=== PATIENT | female | born 1985 | race American Indian/Alaskan Native ===

== ENCOUNTER 2017-02-04 22:01 | Emergency (ER) | payer OTHER ==
[2017-02-04 22:14] VITALS: BP 133/71
[2017-02-04] MEDS ORDERED: PROVENTIL IH ONE (23:05)
--- NOTE | 2017-02-04 23:34 | Emergency Department Report ---
HPI - General Chief Complaint: Adult Asthma Time Seen by Provider: 02/04/17 23:18 - HPI HPI: This is a 31-year-old female who presents to the emergency department with complaint of a one to 2 day history of some shortness of breath and wheezing that she believes is an asthma exacerbation. She has asthma but is out of her albuterol inhaler or the medications to use her nebulizer. She denies any cough, fever, chest pain, back pain, nausea, vomiting or diaphoresis. She has not taken anything for her symptoms prior to Presentation. She follows up at a asthma and/or allergy clinic but says that she is moving and is going to find a new doctor. She denies any tobacco or illicit drug use or abuse. No recent travel or sick contacts at home. ED Past Medical Hx - Past Medical History Hx Asthma: Yes - Surgical History Past Surgical History?: No - Social History Smoking Status: Never Smoker Substance Use Type: Alcohol - Medications Home Medications: Home Medications Medication Instructions Recorded Confirmed Last Taken Type ALBUTEROL Inhaler [ProAir HFA 2 puff IH QID PRN #1 inhalation 02/05/17 Unknown Rx Inhaler] ALBUTEROL NEB's [Proventil] 2.5 mg IH TID PRN #1 box 02/05/17 Unknown Rx predniSONE [Deltasone] 20 mg PO BID #10 tablet 02/05/17 Unknown Rx ED Review of Systems ROS: Stated complaint: ASTHMA, SHORTNESS OF BREATH Other details as noted in HPI Comment: All other systems reviewed and negative Constitutional: denies: chills, fever Eyes: denies: eye pain, eye discharge, vision change ENT: denies: ear pain, throat pain Respiratory: shortness of breath, wheezing Cardiovascular: denies: palpitations, edema Gastrointestinal: denies: abdominal pain, nausea, diarrhea Genitourinary: denies: urgency, dysuria, discharge Musculoskeletal: denies: back pain, joint swelling, arthralgia Skin: denies: rash, lesions Neurological: denies: headache, weakness, paresthesias Physical Exam - Physical Exam Vital Signs: Vital Signs 02/04/17 02/04/17 02/04/17 22:06 22:11 23:11 Temperature 98.5 F 99.7 F H Pulse Rate 80 78 Pulse Rate [ Anterior Bilateral Throughout] Respiratory 18 18 22 Rate Respiratory Rate [Anterior Bilateral Throughout] Blood Pressure 133/71 133/71 O2 Sat by Pulse 100 100 99 Oximetry 02/04/17 23:12 Temperature Pulse Rate Pulse Rate [ 74 Anterior Bilateral Throughout] Respiratory Rate Respiratory 22 Rate [Anterior Bilateral Throughout] Blood Pressure O2 Sat by Pulse Oximetry Physical Exam: GENERAL: The patient is well-developed well-nourished. HENT: Normocephalic. Atraumatic. Patient has moist mucous membranes. EYES: Extraocular motions are intact. Pupils equal reactive to light bilaterally. NECK: Supple. Trachea is midline. CHEST/LUNGS: There is some mild wheezing throughout the chest. No tachypnea or accessory muscle use. A dry cough heard occasionally during examination. There is no respiratory distress noted. HEART/CARDIOVASCULAR: Regular. There is no tachycardia. There is no murmur. ABDOMEN: Abdomen is soft, nontender. Patient has normal bowel sounds. There is no abdominal distention. SKIN: Skin is warm and dry. NEURO: The patient is awake, alert, and oriented. The patient is cooperative. The patient has no focal neurologic deficits. The patient has normal speech. MUSCULOSKELETAL: There is no tenderness or deformity. There is no limitation range of motion. There is no evidence of acute injury. ED Course Vital Signs 02/04/17 02/04/17 02/04/17 22:06 22:11 23:11 Temperature 98.5 F 99.7 F H Pulse Rate 80 78 Pulse Rate [ Anterior Bilateral Throughout] Respiratory 18 18 22 Rate Respiratory Rate [Anterior Bilateral Throughout] Blood Pressure 133/71 133/71 O2 Sat by Pulse 100 100 99 Oximetry 02/04/17 23:12 Temperature Pulse Rate Pulse Rate [ 74 Anterior Bilateral Throughout] Respiratory Rate Respiratory 22 Rate [Anterior Bilateral Throughout] Blood Pressure O2 Sat by Pulse Oximetry ED Medical Decision Making - Radiology Data Radiology results: image reviewed interpreted by me: Chest x-ray does not show any acute process. There are no pleural effusions, obvious pneumonia and there is no pneumothorax. - Medical Decision Making 31-year-old female with a history of asthma presents with some wheezing and/or bronchospasm. She was given albuterol treatment and eventually prednisone. After the breathing treatment her wheezing has greatly improved and the patient says she is feeling better. Vital signs stable including being afebrile and no hypoxia. Chest x-ray does not show any pneumonia, pleural effusions or pneumothorax. She appears safe for discharge home at this time. She will go home with a refill of her albuterol inhaler, nebulized treatments and a course of steroids. She will return to the ER with any worsening or symptoms or any acute distress. - Differential Diagnosis asthma, bronchitis, pneumonia Critical Care Time: No Critical care attestation.: If time is entered above; I have spent that time in minutes in the direct care of this critically ill patient, excluding procedure time. ED Disposition Clinical Impression: Bronchospasm Asthma exacerbation Qualifiers: Asthma severity: unspecified severity Asthma persistence: unspecified Qualified Code(s): J45.901 - Unspecified asthma with (acute) exacerbation Disposition: TO HOME OR SELFCARE Is pt being admited?: No Condition: Stable Instructions: Asthma (ED) Additional Instructions: Please follow up with a primary care physician in the next few days. Return to the emergency Department with any worsening of your symptoms or any acute distress. Prescriptions: ALBUTEROL Inhaler [ProAir HFA Inhaler] 2 puff IH QID PRN #1 inhalation PRN Reason: Shortness Of Breath ALBUTEROL NEB's [Proventil] 2.5 mg IH TID PRN #1 box PRN Reason: Wheezing predniSONE [Deltasone] 20 mg PO BID #10 tablet Referrals: MARCELLA WEBB MD [Staff Physician] - 3-5 Days [facility] [Outside] - 3-5 Days Time of Disposition: 00:44
[2017-02-05] MEDS ORDERED: DELTASONE PO ONE (00:42)
--- NOTE | 2017-02-05 07:26 | XRay Report ---
ROUTINE CHEST, TWO VIEWS: HISTORY: Asthma, shortness of breath. The trachea, heart, mediastinal contour, lung aguilar and bony thorax are unremarkable. IMPRESSION: Unremarkable chest x-ray.
== END 2017-02-05 00:55 | disposition home or self-care (01) ==
LOC: ED 22:01
DX: J98.01 Acute bronchospasm (principal); J45.901 Unspecified asthma with (acute) exacerbation
CPT/HCPCS: 71020; 94640; 99283; J7512